=== PATIENT | female | born 1940 | race Caucasian/White ===

== ENCOUNTER 2017-12-07 13:55 | Emergency (ER) | payer MEDICARE, OTHER ==
[2017-12-07] MEDS ORDERED: IBUPROFEN 800 MG TABLET PO STA (15:01)
--- NOTE | 2017-12-07 15:05 | XRAY Report ---
EXAM: RIGHT HUMERUS RADIOGRAPHY EXAM DATE: 12/07/2017 02:57 PM. CLINICAL HISTORY: Fall, pain. COMPARISON: None. TECHNIQUE: 2 views. FINDINGS: Bones: Osteopenia. Impacted fracture right humeral neck with small amount comminution and about 60% a pposition. Otherwise unremarkable. Joints: Mild degenerative changes of the right shoulder. Unremarkable elbow. Soft Tissues: Soft tissue swelling. Clear visualized lung. IMPRESSION: Right humeral neck fracture. [facility] Referring Provider Line: [phone] SITE ID: [id number]
--- NOTE | 2017-12-07 15:07 | XRAY Report ---
EXAM: RIGHT RIB RADIOGRAPHY EXAM DATE: 12/07/2017 02:58 PM. CLINICAL HISTORY: Fall, pain. COMPARISON: None. TECHNIQUE: 1 view of the chest and 2 views of the ribs. FINDINGS: Bones: Osteopenia. Degenerative changes. See separate report for right humeral neck fracture. No othe r definite fracture. Lungs: Hyperexpanded, but clear. No effusion or pneumothorax. Mediastinum: Heart and mediastinal contours are unremarkable. Upper lobe vessels not distended. Other: None. IMPRESSION: Negative ribs. [facility] Referring Provider Line: [phone] SITE ID: [id number]
--- NOTE | 2017-12-07 15:27 | ED Physician Documentation ---
PD HPI UPPER EXT INJURY - Stated complaint Stated Complaint: GLF/ RIGHT ARM INJ - Chief complaint Chief Complaint: Ext Problem - History obtained from History obtained from: Patient - History of Present Illness Location: Right, Arm Type of injury: Fall Where injury occurred: [place] Timing - onset: How many hours ago (2) Worsened by: Moving, Palpating Associated symptoms: No: Weakness, Numbness Similar symptoms before: Has not had sx before - Additonal information Additional information: The patient is a 77-year-old female who was walking her dog at the park when it lurched after a rabbit. The patient fell landing on her right arm. She presents now with pain in her right upper arm and right chest wall. The incident occurred about 2 hours prior to arrival. She is right-hand dominant. She denies any other injuries. Review of Systems Constitutional: denies: Fever Cardiac: reports: Chest pain / pressure (Right chest wall.) Respiratory: denies: Dyspnea, Cough GI: denies: Abdominal Pain, Nausea, Vomiting : denies: Dysuria Skin: denies: Abrasion (s), Laceration (s) Musculoskeletal: reports: Extremity pain (Right upper extremity.). 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 - Present Medications Home Medications: Ambulatory Orders Medication Instructions Recorded Confirmed Beniva 12/07/17 HYDROcod/ACETAM 5/325 [[place] 5/325] 1 ea PO Q6H PRN #20 tablet 12/07/17 Levothyroxine [Synthroid] 12/07/17 - Allergies Allergies/Adverse Reactions: Allergies Allergy/AdvReac Type Severity Reaction Status Date / Time No Known Drug Allergies Allergy Verified 12/07/17 14:18 - Social History Does the pt smoke?: No Smoking Status: Never smoker Does the pt drink ETOH?: No Does the pt have substance abuse?: No - Immunizations Immunizations are current?: Yes PD ED PE NORMAL - Vitals Vital signs reviewed: Yes (Hypertensive.) - General General: Alert and oriented X 3, Well developed/nourished - HEENT HEENT: Atraumatic, EOMI, Pharynx benign - Neck Neck: No bony TTP - Cardiac Cardiac: RRR - Respiratory Respiratory: No respiratory distress, Other (There is tenderness to palpation of the right upper chest wall along the anterior axillary line. There is no bony step-off palpated, and no ecchymosis or abrasion.) - Abdomen Abdomen: Soft, Non tender - Back Back: No spinal TTP - Derm Derm: No rash - Extremities Extremities: Other (There is tenderness to palpation of the right upper arm at the proximal humerus. She has decreased range of motion of the shoulder secondary to pain. There is no tenderness at the elbow, forearm, or wrist. Distal neurovascular is intact.) - Neuro Neuro: Alert and oriented X 3, No motor deficit, No sensory deficit Results - Vitals Vitals: Oxygen O2 Source Room air - Rads (name of study) right humerus Radiology: Prelim report reviewed, EMP read contemporaneously, See rad report ( Right humeral neck fracture, with small comminution.) Right ribs Radiology: Prelim report reviewed, EMP read contemporaneously, See rad report ( No rib fractures identified.) PD MEDICAL DECISION MAKING - ED course Complexity details: reviewed results, re-evaluated patient, considered differential ED course: The patient's presentation is significant for a mildly comminuted fracture of the right humeral neck. She also has contusion to the right chest wall, without rib fracture seen on x-ray of the chest with rib detail. Treatment in the emergency department included administration of ibuprofen 800 mg orally. A right arm sling was applied. I discussed with her the expected course of healing, symptomatic treatment and outpatient follow-up, as well as potentially worrisome signs or symptoms that should prompt reevaluation in the emergency department. Departure - Departure Disposition: 01 Home, Self Care Clinical Impression: Fx humeral neck Qualifiers: Encounter type: initial encounter Fracture type: closed Laterality: right Qualified Code(s): S42.211A - Unspecified displaced fracture of surgical neck of right humerus, initial encounter for closed fracture Chest wall contusion Qualifiers: Encounter type: initial encounter Laterality: right Qualified Code(s): S20.211A - Contusion of right front wall of thorax, initial encounter Condition: Stable Instructions: ED Contusion Chest Wall, ED Fx Shoulder Prescriptions: HYDROcod/ACETAM 5/325 [[place] 5/325] 1 ea PO Q6H PRN #20 tablet PRN Reason: Pain Comments: Keep your right arm elevated as much time as possible. Apply ice pack intermittently for the first 3 or 4 days. Use the arm sling for comfort. Follow up with your primary physician within 2 weeks. Call to schedule appointment. Return to the emergency department if you develop markedly increasing pain, or otherwise worsening symptoms. Discharge Date/Time: 12/07/17 15:54
[2017-12-07 15:56] VITALS: BP 153/75
== END 2017-12-07 15:54 | disposition home or self-care (01) ==
LOC: ED 13:55
DX: S42.211A Unspecified displaced fracture of surgical neck of right humerus, initial encounter for closed fracture (principal); S20.211A Contusion of right front wall of thorax, initial encounter; W19.XXXA Unspecified fall, initial encounter; Y93.K1 Activity, walking an animal; Y92.830 Public park as the place of occurrence of the external cause; E03.9 Hypothyroidism, unspecified
CPT/HCPCS: 71101; 73060; 99283; A9270